=== PATIENT | female | born 1995 | race American Indian/Alaskan Native ===

== ENCOUNTER 2020-07-04 13:05 | Emergency (ER) | payer SELFPAY ==
[2020-07-04 15:05] VITALS: BP 108/75
--- NOTE | 2020-07-04 15:18 | Emergency Department Report ---
ED Lower Extremity HPI - General Chief Complaint: Extremity Injury, Lower Stated Complaint: LEFT LEG INJURY Time Seen by Provider: 07/04/20 15:17 Source: patient Mode of arrival: Ambulatory Limitations: No Limitations - History of Present Illness Initial Comments: 24 year female presents to ED with complaints of left knee pain. Patient states that around 12/1am she was hanging out with friends drinking when she some how injured her left knee. She states she remembers jumping and when she landed she felt a pop in left knee. She states he had her friend pop it back in place. She states she continued walking and dancing on it for the rest of the night. When she woke up this morning she noticed increased pain and swelling to left knee. She reports worsening pain with weight bearing. She denies any apparent bruising or erythema. She states she dislocated her left knee several yrs ago but never f/u with ortho. MD Complaint: knee injury -: Sudden (early this morning) - Related Data Previous Rx's Medication Instructions Recorded Last Taken Type Ibuprofen [Motrin] 600 mg PO Q8H PRN #30 tablet 07/04/20 Unknown Rx Allergies Allergy/AdvReac Type Severity Reaction Status Date / Time No Known Allergies Allergy Unverified 07/04/20 15:05 ED Review of Systems ROS: Stated complaint: LEFT LEG INJURY Other details as noted in HPI Comment: All other systems reviewed and negative Constitutional: denies: chills, diaphoresis, fever, malaise, weakness Eyes: as per HPI. denies: eye discharge, vision change ENT: denies: ear pain, throat pain Respiratory: denies: cough, orthopnea, shortness of breath, SOB with exertion, SOB at rest, stridor, wheezing Cardiovascular: denies: chest pain, palpitations, edema, syncope, paroxysmal nocturnal dyspnea Endocrine: no symptoms reported Gastrointestinal: denies: abdominal pain, nausea, diarrhea, constipation, hematemesis, melena, hematochezia Genitourinary: denies: urgency, dysuria, discharge Musculoskeletal: joint swelling, arthralgia Skin: denies: rash, lesions Neurological: denies: headache, weakness, numbness, paresthesias, confusion, abnormal gait, vertigo Psychiatric: denies: anxiety, depression, auditory hallucinations, visual hallucinations, homicidal thoughts, suicidal thoughts Hematological/Lymphatic: denies: easy bleeding, easy bruising ED Past Medical Hx - Past Medical History Previous Medical History?: Yes - Social History Smoking Status: Current Every Day Smoker Substance Use Type: Alcohol - Medications Home Medications: Home Medications Medication Instructions Recorded Confirmed Last Taken Type Ibuprofen [Motrin] 600 mg PO Q8H PRN #30 tablet 07/04/20 Unknown Rx ED Physical Exam - General Limitations: No Limitations General appearance: alert, in no apparent distress - Head Head exam: Present: atraumatic, normocephalic - Eye Eye exam: Present: normal appearance, PERRL, EOMI Pupils: Present: normal accommodation - Neck Neck exam: Present: normal inspection, full ROM - Respiratory Respiratory exam: Present: normal lung sounds bilaterally. Absent: respiratory distress, wheezes, rales - Cardiovascular Cardiovascular Exam: Present: regular rate, normal rhythm, normal heart sounds - Expanded Lower Extremity Exam Left Knee exam: Present: full ROM (but painful with flexion), tenderness (moderate medial knee ), swelling (mild ). Absent: abrasion, laceration, ecchymosis, deformity, crepidus, dislocation, erythema, effusion Gait: Positive: observed and limited by pain - Neurological Exam Neurological exam: Present: alert, oriented X3, CN II-XII intact - Psychiatric Psychiatric exam: Present: normal affect, normal mood - Skin Skin exam: Present: intact ED Course Vital Signs 07/04/20 14:59 Temperature 98.2 F Pulse Rate 74 Respiratory 16 Rate Blood Pressure 108/75 O2 Sat by Pulse 100 Oximetry ED Lower Extremity MDM - Radiology Data Radiology results: report reviewed Patient: DIDIER ROMERO MR#: [id number] 80 : 1995 Acct:[id number] Age/Sex: 24 / F ADM Date: 07/04/20 Loc: ED Attending Dr: Ordering Physician: MAYTE FLORES Date of Service: 07/04/20 Procedure(s): XR knee 3V LT Accession Number(s): [id number] cc: MAYTE FLORES Fluoro Time In Minutes: LEFT KNEE 3 VIEW(S) INDICATION / CLINICAL INFORMATION: knee injury COMPARISON: None available. FINDINGS: BONES / JOINT(S): No acute fracture or subluxation. No significant arthritis. SOFT TISSUES: No significant abnormality. ADDITIONAL FINDINGS: None. Signer Name: Krysten Billings MD Signed: 07/04/2020 3:51 PM Workstation Name: [id number] Transcribed By: SS Dictated By: KRYSTEN BILLINGS Electronically Authenticated By: KRYSTEN BILLINGS Signed Date/Time: 07/04/201550 DD/ 50 TD/TT: Critical care attestation.: If time is entered above; I have spent that time in minutes in the direct care of this critically ill patient, excluding procedure time. ED Disposition Clinical Impression: Left knee sprain Disposition: TO HOME OR SELFCARE Is pt being admited?: No Does the pt Need Aspirin: No Condition: Stable Instructions: Knee Sprain, Adult, [id number] Additional Instructions: Rest, ice and elevate leg for the next 2-3 days. Take the motrin as prescribed. Use michelle wrap and cutches as discussed. Follow up with Ortho next week if not better. Prescriptions: Ibuprofen [Motrin] 600 mg PO Q8H PRN #30 tablet PRN Reason: Pain Referrals: BREE MARLOW MD [Staff Physician] - 3-5 Days Forms: Work/School Release Form(ED) Time of Disposition: 16:22
--- NOTE | 2020-07-04 15:55 | XRay Report ---
LEFT KNEE 3 VIEW(S) INDICATION / CLINICAL INFORMATION: knee injury COMPARISON: None available. FINDINGS: BONES / JOINT(S): No acute fracture or subluxation. No significant arthritis. SOFT TISSUES: No significant abnormality. ADDITIONAL FINDINGS: None. Signer Name: Agusto Billings MD Signed: 07/04/2020 3:51 PM Workstation Name: [id number]
== END 2020-07-04 17:13 | disposition home or self-care (01) ==
LOC: ED 13:05
DX: S83.8X2A Sprain of other specified parts of left knee, initial encounter (principal); F17.200 Nicotine dependence, unspecified, uncomplicated; Z72.89 Other problems related to lifestyle; Z98.890 Other specified postprocedural states; X50.1XXA Overexertion from prolonged static or awkward postures, initial encounter; Y93.89 Activity, other specified; Y92.89 Other specified places as the place of occurrence of the external cause; Y99.8 Other external cause status
CPT/HCPCS: 99283